=== PATIENT | female | born 1980 | race American Indian/Alaskan Native ===

== ENCOUNTER 2021-04-26 09:26 | Emergency (ER) | payer SELFPAY ==
--- NOTE | 2021-04-26 09:43 | Emergency Department Report ---
ED Altered Mental Status HPI - General Stated Complaint: HYPOGLYCEMIA Time Seen by Provider: 04/26/21 09:35 Source: patient, EMS Mode of arrival: Stretcher Limitations: No Limitations - History of Present Illness Initial Comments: 40-year-old female with a past medical history of kidney transplant, hypertension, GERD and gastroparesis presents to the hospital with EMS for alter ation in mental status secondary to hypoglycemia. Glucose 23 at the scene. Patient has a insulin pump which was discontinued by EMS upon their arrival. Patient was lethargic and barely able to answer question but was able to take p.o. intake at the scene. Patient ingested approximately 70 g of glucose prior to arrival. They were unable to establish IV access. Repeat glucose 49 prior to arrival. Patient denies nausea, vomiting, fever, cough, loss of sense of taste and smell, and has not received her Covid vaccine. She is eating appropriately but states she likely slept in and did not have breakfast. No recent changes in her insulin therapy. Patient does not have any local physicians is in the process of moving here from [facility]. Patient is currently more alert and able to answer questions appropriately. - Related Data Allergies Allergy/AdvReac Type Severity Reaction Status Date / Time No Known Allergies Allergy Unverified 04/26/21 10:26 ED Review of Systems ROS: Stated complaint: HYPOGLYCEMIA Other details as noted in HPI Comment: All other systems reviewed and negative ED Physical Exam - Other Other exam information: General: No acute distress Head: Atraumatic Eyes: normal appearance ENT: Moist mucous membranes Neck: Normal appearance, no midline tenderness Chest: Clear to auscultation bilaterally CV: Regular rate and rhythm Abdomen: Soft, normal bowel sounds, nontender, nondistended, no rebound or guarding Back: Normal inspection Extremity: Normal inspection, full range of motion Neuro: Alert O x 3, no facial asymmetry, speech clear, no gross motor sensory deficit Psych: Appropriate behavior Skin: No rash ED Course Vital Signs 04/26/21 10:27 Pulse Rate 88 Respiratory 16 Rate Blood Pressure 162/88 [Right] O2 Sat by Pulse 98 Oximetry - Lab Data Lab Results 04/26/21 Range/Units 09:31 POC Glucose 132 H (70-105) mg/dL - Medical Decision Making 40-year-old diabetic presents to the hospital with hypoglycemia secondary to insulin pump and sleeping in and not eating breakfast. CPAP was discontinued by EMS. Initial glucose in the 20s. Improvement of status upon ED arrival with glucose of 132. Patient provided breakfast to eat while waiting completion of triage. After eating glucose in the 300s. Labs ordered and patient transported to the waiting room. As informed by nurse at 10:53 AM patient wanted left AGAINST MEDICAL ADVICE. She was alert and complained of just feeling tired and had someone to come pick her up. I suspect that patient's hypoglycemia secondary to insulin pump and lack of breakfast. Patient does not endorse infectious symptoms. Patient was hyperglycemic at time of signing out but does have an insulin pump to reinitiate treatment. Labs not obtained prior to AMA. Critical Care Time: No Critical care attestation.: If time is entered above; I have spent that time in minutes in the direct care of this critically ill patient, excluding procedure time. ED Disposition Clinical Impression: Diabetic hypoglycemia Disposition: 07 LEFT AGAINST MEDICAL ADVICE Is pt being admited?: No Condition: Stable Instructions: Diabetes Mellitus Type 2 in Adults (ED) Time of Disposition: 10:55
[2021-04-26 10:28] VITALS: BP 162/88
== END 2021-04-26 10:50 | disposition left against medical advice (07) ==
LOC: ED 09:26
DX: E11.649 Type 2 diabetes mellitus with hypoglycemia without coma (principal); I10 Essential (primary) hypertension; K21.9 Gastro-esophageal reflux disease without esophagitis
CPT/HCPCS: 82962

== ENCOUNTER 2021-05-02 10:05 | Emergency (ER) | payer SELFPAY ==
[2021-05-02 11:51] VITALS: BP 149/86
--- NOTE | 2021-05-02 12:05 | Emergency Department Report ---
ED General Adult HPI - General Chief complaint: Hypoglycemia Stated complaint: LOW BLOOD SUGAR PUI?: Yes Time Seen by Provider: 05/02/21 12:01 Source: patient, EMS Mode of arrival: Wheelchair Limitations: No Limitations - History of Present Illness Initial comments: 40-year-old female with a past medical history of right renal transplant secondary to history of kidney disease, gastroparesis, anemia, hypertension, hyperlipidemia, and type 1 diabetes currently on insulin pump was brought to the ER today by EMS for having a hypoglycemic episode. Patient states that she is not exactly sure what happened, but she states that she remembers waking up around 630 this morning then going back to sleep and then the next thing she k new she was waking up in the EMS truck. According to triage nurse, EMS reported that patient had a fingerstick blood sugar on scene of 20. Patient was given D50, and she also had a food tray while waiting to be seen. Her fingerstick now is 248. She denies any recent illness, fever, chills, chest pain, shortness of breath, abdominal pain or any symptoms at this time. Patient states that she ate dinner around 5:00 last night, and then had a snack before going to bed around 1030 pm last night. Patient states that she last had a insulin pump adjusted and her dosage decreased by her primary care doctor but that around April 15. Patient was actually seen here on 04/26 for similar symptoms of a hypoglycemic episode. Complaint: Hypoglycemic episode -: Sudden, This morning - Related Data Allergies Allergy/AdvReac Type Severity Reaction Status Date / Time No Known Allergies Allergy Unverified 04/26/21 10:26 ED Review of Systems ROS: Stated complaint: LOW BLOOD SUGAR Other details as noted in HPI Comment: All other systems reviewed and negative Constitutional: denies: chills, fever Eyes: denies: eye pain, eye discharge, vision change ENT: denies: ear pain, throat pain, dental pain, hearing loss, epistaxis, congestion Respiratory: denies: cough, shortness of breath, SOB with exertion, SOB at rest, wheezing Cardiovascular: denies: chest pain, palpitations, dyspnea on exertion, edema, syncope, paroxysmal nocturnal dyspnea Endocrine: no symptoms reported Gastrointestinal: denies: abdominal pain, nausea, vomiting, diarrhea, constipation, hematemesis, hematochezia Genitourinary: denies: urgency, dysuria, frequency, hematuria, discharge, abnormal menses, dyspareunia Musculoskeletal: denies: back pain, joint swelling, arthralgia Skin: denies: rash, lesions Neurological: other (+AMS episode). denies: headache, weakness, numbness, paresthesias, confusion Psychiatric: denies: anxiety, depression, auditory hallucinations, visual hallucinations, homicidal thoughts, suicidal thoughts Hematological/Lymphatic: denies: easy bleeding, easy bruising, swollen glands ED Past Medical Hx - Past Medical History Previous Medical History?: Yes Hx Diabetes: Yes Additional medical history: Insulin pump - Surgical History Past Surgical History?: Yes - Social History Smoking Status: Never Smoker Substance Use Type: None ED Physical Exam - General Limitations: No Limitations General appearance: alert, in no apparent distress - Head Head exam: Present: atraumatic, normocephalic, normal inspection - Eye Eye exam: Present: normal appearance, PERRL, EOMI Pupils: Present: normal accommodation - ENT ENT exam: Present: normal exam, mucous membranes moist, TM's normal bilaterally - Neck Neck exam: Present: normal inspection, full ROM. Absent: tenderness - Respiratory Respiratory exam: Present: normal lung sounds bilaterally. Absent: respiratory distress, wheezes, rales, rhonchi - Cardiovascular Cardiovascular Exam: Present: regular rate, normal rhythm, normal heart sounds - GI/Abdominal GI/Abdominal exam: Present: soft. Absent: distended, tenderness, guarding, rebound - Neurological Exam Neurological exam: Present: alert, oriented X3, CN II-XII intact, normal gait - Psychiatric Psychiatric exam: Present: normal affect, normal mood ED Course Vital Signs 05/02/21 11:49 Temperature 97.7 F Pulse Rate 97 H Respiratory 18 Rate Blood Pressure 149/86 O2 Sat by Pulse 99 Oximetry ED Medical Decision Making - Medical Decision Making Patient fingerstick blood sugar now is 248 after she received D50 and was given a meal in the ER. Patient denied any symptoms before, and currently denies any symptoms now. She states that she feels better and is ready to go home. Her vital signs are stable. She is not toxic or ill-appearing and does not appear significantly dehydrated. She is currently awake alert and oriented x3, she is neurologically intact with a normal gait. Discussed case with Dr Francis, -- no indication at this time for any lab work and patient can be discharged. Informed patient that she may need to eat more frequently throughout the day, check her blood sugar regularly, and follow-up closely with her primary care doctor on Tuesday to see if she may need to have her insulin again adjusted. Patient expressed understanding of all instructions and agree with plan. Patient stable at time of discharge. Critical care attestation.: If time is entered above; I have spent that time in minutes in the direct care of this critically ill patient, excluding procedure time. ED Disposition Clinical Impression: Hypoglycemic episode in patient with diabetes mellitus Disposition: HOME / SELF CARE / HOMELESS Is pt being admited?: No Does the pt Need Aspirin: No Condition: Stable Instructions: Preventing Hypoglycemia, Blood Glucose Monitoring, Adult, Hypoglycemia, [id number], Diabetes Mellitus Type 2 in Adults (ED) Additional Instructions: I recommend that you check your blood sugar routinely. I recommend that you eat more frequent meals throughout the day recommend close follow-up with your primary care doctor either Tuesday or Tuesday to have your insulin adjusted again. Return to the ER if your symptoms changes or worsens in any way. Referrals: PRIMARY CAREMD [Primary Care Provider] - 3-5 Days Time of Disposition: 12:15
== END 2021-05-02 12:44 | disposition home or self-care (01) ==
LOC: ED 10:05
DX: E10.649 Type 1 diabetes mellitus with hypoglycemia without coma (principal); I10 Essential (primary) hypertension; Z79.899 Other long term (current) drug therapy; Z79.4 Long term (current) use of insulin
CPT/HCPCS: 82962; 99284

== ENCOUNTER 2021-05-04 19:33 | Emergency (ER) | payer SELFPAY ==
[2021-05-04] MEDS ORDERED: DEXTROSE 50% IN WATER (25GM) 50 ML SYRINGE IV PRN (19:54)
--- NOTE | 2021-05-04 19:55 | Emergency Department Report ---
ED General Adult HPI - General Chief complaint: Medical Clearance Stated complaint: HYPOGLYCEMIA PUI?: No Time Seen by Provider: 05/04/21 19:44 Source: patient, EMS (Verbal report received from emergency medical services. EMS documentation not available at time of chart dictation ), RN notes reviewed, old records reviewed Mode of arrival: Stretcher Limitations: No Limitations - History of Present Illness Initial comments: The patient was evaluated in the emergency department for symptoms described in the history of present illness. He/she was evaluated in the context of the global COVID-19 pandemic, which necessitated consideration that the patient might be at risk for infection with the virus that causes COVID-19. Ins titutional protocols and algorithms that pertain to the evaluation of patients at risk for COVID-19 are in a state of rapid change based on information released by regulatory bodies including the CDC and federal and state organizations. These policies and algorithms were followed during the patient's care in the emergency department. Please note that these policies, procedures and recommendations changed on a rapid basis. This patient is a 40-year-old female. She is not known to myself previously. She reports a history of type 1 diabetes, with an insulin pump, GERD, gastroparesis, and also reports a history of cadaveric renal transplant, done at [facility] in [place], and is currently maintained on chronic steroids, tacrolimus, and mycophenolate. She reports that she is currently attempting to relocate from [place]. She therefore has no established medical care here in the [facility]. This is her third visit to this hospital with a complaint of hypoglycemia. EMS reports the patient was in a car, which was not damaged and was altered. She was found to be hypoglycemic in the field. She was given dextrose in the field. Here in the emergency room, the patient complains of generalized body aches. She denies headache, neck pain, chest pain, abdominal pain, shortness of breath, loss of taste and smell. She reports that her insulin pump typically administers insulin doses, according to what she eats and carbohydrates. The patient denies recreational drug use. The patient denies that she is . Patient given D50. I also fed this patient a meal tray. In addition, her insulin pump was disconnected in the emergency room. -: Sudden Consistency: intermittent Improves with: eating Worsens with: none - Related Data Previous Rx's Medication Instructions Recorded Last Taken Type Diabetic Supplies,Miscell [Cequr 1 each MC DAILY #1 miscell 05/05/21 Unknown Rx Simplicity Layboy Tender] Insulin Regular, Human [Novolin R See Protocol SUB-Q ACHS 30 Days #1 05/05/21 Unknown Rx Flexpen] insuln.pen Allergies Allergy/AdvReac Type Severity Reaction Status Date / Time No Known Allergies Allergy Unverified 04/26/21 10:26 ED Review of Systems ROS: Stated complaint: HYPOGLYCEMIA Other details as noted in HPI Constitutional: malaise, weakness. denies: fever Eyes: denies: eye discharge ENT: denies: epistaxis Respiratory: denies: cough Cardiovascular: denies: chest pain Gastrointestinal: denies: abdominal pain Genitourinary: denies: dysuria Musculoskeletal: myalgia Neurological: weakness ED Past Medical Hx - Past Medical History Hx Diabetes: Yes Additional medical history: Insulin pump - Social History Smoking Status: Never Smoker Substance Use Type: None - Medications Home Medications: Home Medications Medication Instructions Recorded Confirmed Last Taken Type Diabetic Supplies,Miscell [Cequr 1 each MC DAILY #1 miscell 05/05/21 Unknown Rx Simplicity Layboy Tender] Insulin Regular, Human [Novolin R See Protocol SUB-Q ACHS 30 Days #1 05/05/21 Unknown Rx Flexpen] insuln.pen ED Physical Exam - General Limitations: No Limitations General appearance: alert, anxious - Head Head exam: Present: atraumatic, normocephalic - Eye Eye exam: Present: normal appearance, EOMI. Absent: nystagmus - ENT ENT exam: Present: normal exam, normal orophraynx, mucous membranes moist, normal external ear exam - Neck Neck exam: Present: normal inspection, full ROM. Absent: tenderness, meningismus - Respiratory Respiratory exam: Present: normal lung sounds bilaterally. Absent: respiratory distress, wheezes, rales, rhonchi, stridor, decreased breath sounds - Cardiovascular Cardiovascular Exam: Present: regular rate, normal rhythm, normal heart sounds. Absent: bradycardia, tachycardia, irregular rhythm, systolic murmur, diastolic murmur, rubs, gallop - GI/Abdominal GI/Abdominal exam: Present: soft. Absent: distended, tenderness, guarding, rigid, pulsatile mass - Extremities Exam Extremities exam: Present: normal inspection, full ROM, other (2+ pulses noted in the bilateral upper and lower extremities. There is no palpable cord. negative Homans sign. Muscular compartments are soft. The pelvis is stable.). Absent: pedal edema, calf tenderness - Back Exam Back exam: Present: normal inspection. Absent: tenderness, CVA tenderness (R), CVA tenderness (L), paraspinal tenderness, vertebral tenderness - Neurological Exam Neurological exam: Present: alert, oriented X3, other (No facial droop. Tongue midline. Extraocular movements intact bilaterally. Facial sensation intact to light touch in V1, V2, V3 distribution bilaterally. 5 and a 5 strength in 4 extremities. Sensation intact to light touch in 4 extremities.). Absent: motor sensory deficit - Psychiatric Psychiatric exam: Present: anxious - Skin Skin exam: Present: warm, dry, intact, normal color. Absent: rash ED Course Vital Signs 05/05/21 05/05/21 00:21 00:26 Temperature 98.9 F Respiratory 12 18 Rate Blood Pressure 132/69 O2 Sat by Pulse 100 Oximetry - Reevaluation(s) Reevaluation #1: 05/04/21 20:30 Differential diagnosis, including not limited to: Hypoglycemia, thyroid derangement, renal derangement, liver derangement, medication side effect, pneumonia, urinary tract infection, excessive insulin administration from pump, recreational drug use. Assessment and plan: 40-year-old female, who is currently clinically sober with a GCS of 15, with her third visit for hypoglycemia. Patient has a very complex past medical history, and is on a number of complex and high alert medications. She is currently being fed, she is not clinically encephalopathic at this time. We have requested basic laboratory studies, urinalysis, and x-ray the chest. Accu-Cheks every 1 hour, as needed dextrose. I requested that nursing team obtain full set of vital signs. Patient will also need to head to toe skin examination to evaluate for cellulitis, and cutaneous infection pathology. Reassess after this evaluation has been completed. Her insulin pump was discontinued. 05/04/21 23:49 Patient has been observed here for hours. Performed head to toe skin examination while nurse Jean Marie Bethea is present as a producer director. Her physical examination is unremarkable. Her laboratory studies are essentially unremarkable. She has very mild renal insufficiency. However, urinalysis unremarkable and chest x-ray unremarkable for acute infectious pathology. The patient's insulin pump has been discontinued. I have strongly advised patient to keep her insulin pump discontinued, we will discharge her with insulin prescriptions to go, and have also strongly encouraged the patient to very closely follow-up with an outpatient primary care, waste recycler, and ideally a transplant waste recycler. At this point time, she does not require transfer to a transplant center. She will be given an affordable prescription card. She has articulated understanding. Repeat Accu-Chek and repeat vital signs are pending, and if unremarkable, and within normal limits, we anticipate discharge. ED Medical Decision Making - Lab Data Result diagrams: 05/04/21 20:19 05/04/21 20:19 Lab Results 05/04/21 05/04/21 05/04/21 Range/Units 20:19 20:19 20:19 WBC 9.6 (4.5-11.0) K/mm3 RBC 3.87 (3.65-5.03) M/mm3 Hgb 10.7 (10.1-14.3) gm/dl Hct 34.4 (30.3-42.9) % MCV 89 (79-97) fl MCH 28 (28-32) pg MCHC 31 (30-34) % RDW 20.7 H (13.2-15.2) % Plt Count 396 (140-440) K/mm3 Sodium 138 (137-145) mmol/L Potassium 4.1 (3.6-5.0) mmol/L Chloride 104.4 (98-107) mmol/L Carbon Dioxide 23 (22-30) mmol/L Anion Gap 15 mmol/L BUN 21 H (7-17) mg/dL Creatinine 1.5 H (0.6-1.2) mg/dL Estimated GFR 47 ml/min BUN/Creatinine Ratio 14 % Glucose 101 H (65-100) mg/dL POC Glucose (70-105) mg/dL Calcium 10.3 H (8.4-10.2) mg/dL Total Bilirubin 0.20 (0.1-1.2) mg/dL AST 17 (5-40) units/L ALT 11 (7-56) units/L Alkaline Phosphatase 104 (35-129) units/L Total Protein 8.3 H (6.3-8.2) g/dL Albumin 4.3 (3.9-5) g/dL Albumin/Globulin Ratio 1.1 % TSH 0.710 (0.270-4.200) mlU/mL Urine Color (Yellow) Urine Turbidity (Clear) Urine pH (5.0-7.0) Ur Specific [place] (1.003-1.030) Urine Protein (Negative) mg/dL Urine Glucose (UA) (Negative) mg/dL Urine Ketones (Negative) mg/dL Urine Blood (Negative) Urine Nitrite (Negative) Urine Bilirubin (Negative) Urine Urobilinogen (<2.0) mg/dL Ur Leukocyte Esterase (Negative) Urine WBC (Auto) (0.0-6.0) /HPF Urine RBC (Auto) (0.0-6.0) /HPF U Epithel Cells (Auto) (0-13.0) /HPF Urine Mucus /HPF Urine Yeast (Budding) /HPF Urine HCG, Qual (Negative) Salicylates (2.8-20.0) mg/dL Urine Opiates Screen Urine Methadone Screen Acetaminophen (10.0-30.0) ug/mL Ur Barbiturates Screen Ur Phencyclidine Scrn Ur Amphetamines Screen U Benzodiazepines Scrn Urine Cocaine Screen U Marijuana (THC) Screen Drugs of Abuse Note Plasma/Serum Alcohol (0-0.07) % 05/04/21 05/04/21 05/04/21 Range/Units 20:19 20:19 20:19 WBC (4.5-11.0) K/mm3 RBC (3.65-5.03) M/mm3 Hgb (10.1-14.3) gm/dl Hct (30.3-42.9) % MCV (79-97) fl MCH (28-32) pg MCHC (30-34) % RDW (13.2-15.2) % Plt Count (140-440) K/mm3 Sodium (137-145) mmol/L Potassium (3.6-5.0) mmol/L Chloride (98-107) mmol/L Carbon Dioxide (22-30) mmol/L Anion Gap mmol/L BUN (7-17) mg/dL Creatinine (0.6-1.2) mg/dL Estimated GFR ml/min BUN/Creatinine Ratio % Glucose (65-100) mg/dL POC Glucose (70-105) mg/dL Calcium (8.4-10.2) mg/dL Total Bilirubin (0.1-1.2) mg/dL AST (5-40) units/L ALT (7-56) units/L Alkaline Phosphatase (35-129) units/L Total Protein (6.3-8.2) g/dL Albumin (3.9-5) g/dL Albumin/Globulin Ratio % TSH (0.270-4.200) mlU/mL Urine Color (Yellow) Urine Turbidity (Clear) Urine pH (5.0-7.0) Ur Specific [place] (1.003-1.030) Urine Protein (Negative) mg/dL Urine Glucose (UA) (Negative) mg/dL Urine Ketones (Negative) mg/dL Urine Blood (Negative) Urine Nitrite (Negative) Urine Bilirubin (Negative) Urine Urobilinogen (<2.0) mg/dL Ur Leukocyte Esterase (Negative) Urine WBC (Auto) (0.0-6.0) /HPF Urine RBC (Auto) (0.0-6.0) /HPF U Epithel Cells (Auto) (0-13.0) /HPF Urine Mucus /HPF Urine Yeast (Budding) /HPF Urine HCG, Qual (Negative) Salicylates < 0.3 L (2.8-20.0) mg/dL Urine Opiates Screen Urine Methadone Screen Acetaminophen 5.0 L (10.0-30.0) ug/mL Ur Barbiturates Screen Ur Phencyclidine Scrn Ur Amphetamines Screen U Benzodiazepines Scrn Urine Cocaine Screen U Marijuana (THC) Screen Drugs of Abuse Note Plasma/Serum Alcohol < 0.01 (0-0.07) % 05/04/21 05/04/21 05/04/21 Range/Units 23:47 Unknown Unknown WBC (4.5-11.0) K/mm3 RBC (3.65-5.03) M/mm3 Hgb (10.1-14.3) gm/dl Hct (30.3-42.9) % MCV (79-97) fl MCH (28-32) pg MCHC (30-34) % RDW (13.2-15.2) % Plt Count (140-440) K/mm3 Sodium (137-145) mmol/L Potassium (3.6-5.0) mmol/L Chloride (98-107) mmol/L Carbon Dioxide (22-30) mmol/L Anion Gap mmol/L BUN (7-17) mg/dL Creatinine (0.6-1.2) mg/dL Estimated GFR ml/min BUN/Creatinine Ratio % Glucose (65-100) mg/dL POC Glucose 296 H (70-105) mg/dL Calcium (8.4-10.2) mg/dL Total Bilirubin (0.1-1.2) mg/dL AST (5-40) units/L ALT (7-56) units/L Alkaline Phosphatase (35-129) units/L Total Protein (6.3-8.2) g/dL Albumin (3.9-5) g/dL Albumin/Globulin Ratio % TSH (0.270-4.200) mlU/mL Urine Color Yellow (Yellow) Urine Turbidity Slightly-cloudy (Clear) Urine pH 6.0 (5.0-7.0) Ur Specific [place] 1.014 (1.003-1.030) Urine Protein >500 (Negative) mg/dL Urine Glucose (UA) 50 (Negative) mg/dL Urine Ketones Neg (Negative) mg/dL Urine Blood Sm (Negative) Urine Nitrite Neg (Negative) Urine Bilirubin Neg (Negative) Urine Urobilinogen < 2.0 (<2.0) mg/dL Ur Leukocyte Esterase Neg (Negative) Urine WBC (Auto) 4.0 (0.0-6.0) /HPF Urine RBC (Auto) 6.0 (0.0-6.0) /HPF U Epithel Cells (Auto) 5.0 (0-13.0) /HPF Urine Mucus Few /HPF Urine Yeast (Budding) Few /HPF Urine HCG, Qual Negative (Negative) Salicylates (2.8-20.0) mg/dL Urine Opiates Screen Negative Urine Methadone Screen Negative Acetaminophen (10.0-30.0) ug/mL Ur Barbiturates Screen Negative Ur Phencyclidine Scrn Negative Ur Amphetamines Screen Negative U Benzodiazepines Scrn Negative Urine Cocaine Screen Negative U Marijuana (THC) Screen Negative Drugs of Abuse Note Disclamer Plasma/Serum Alcohol (0-0.07) % Vital Signs 05/05/21 05/05/21 00:21 00:26 Temperature 98.9 F Respiratory 12 18 Rate Blood Pressure 132/69 O2 Sat by Pulse 100 Oximetry Heart rate is 96 bpm. Vital Signs 05/05/21 05/05/21 00:21 00:26 Temperature 98.9 F Respiratory 12 18 Rate Blood Pressure 132/69 O2 Sat by Pulse 100 Oximetry Critical care attestation.: If time is entered above; I have spent that time in minutes in the direct care of this critically ill patient, excluding procedure time. ED Disposition Clinical Impression: History of renal transplant, Diabetic hypoglycemia Disposition: HOME / SELF CARE / HOMELESS Is pt being admited?: No Does the pt Need Aspirin: No Condition: Stable Instructions: Diabetes Mellitus Type 2 in Adults (ED), Hypoglycemia, [id number] Additional Instructions: I recommend that the patient keep her diabetic pump discontinued for the time being. Please take the prescribed insulin as directed. Please make certain to remain compliant with a diabetic appropriate diet. I strongly recommend that the patient follow-up as soon as possible with an outpatient primary care doctor or register of wills to establish care here in [place]. We also recommended the patient follow-up as soon as possible with an outpatient waste recycler and/or transplant waste recycler, to establish care here in [place]. The patient may continue her current outpatient medications, except for her insulin therapy via pump, but close follow-up is necessary to ensure that patient's medications are working appropriately Take the prescribed insulin as directed. Dr. Tom Is a local primary care doctor. Dr. Rc Sherwood Is a local waste recycler. The patient will need to contact her insurance company and find out what endocrinologists are local, and her current insurance network. Local transplant facilities include [facility]. The patient should research local transplant waste recycler at these facilities, or primary care doctor or waste recycler may refer her to a local facility. It is very important to keep your diabetic insulin pump disconnected for the time being, as the patient had her third visit for low blood sugar today. Co mplications of persistently low blood sugar include , disability, paralysis, loss of quality of life, traumatic injury. Therefore, please take the prescribed insulin as directed. Please return to the emergency room right away with new pain, worsened pain, migration of pain, projectile vomiting, change in mental status, confusion, inability tolerate liquid feeds, new, worsened or different symptoms not present on the initial emergency room evaluation. Prescriptions: Diabetic Supplies,Miscell [Cequr Simplicity Layboy Tender] 1 each MC DAILY #1 miscell Insulin Regular, Human [Novolin R Flexpen] See Protocol SUB-Q ACHS 30 Days #1 [email or web address] Referrals: PRIMARY CAREMD [Primary Care Provider] - 3-5 Days CIERRA TOM MD [Staff Physician] - 3-5 Days MARKOS SHERWOOD MD [Staff Physician] - 3-5 Days
[2021-05-04 20:50] LABS: Albumin 4.3 g/dL (3.9-5); Calcium 10.3 mg/dL (8.4-10.2)
[2021-05-04 20:51] LABS: Hematocrit 34.4 % (30.3-42.9); Hemoglobin 10.7 gm/dl (10.1-14.3); Mean Corpuscular HGB Conc 31 % (30-34); Mean Corpuscular Volume 89 fl (79-97); Platelet Count 396 K/mm3 (140-440); Red Blood Count 3.87 M/mm3 (3.65-5.03)
[2021-05-04 20:53] LABS: Red Cell Distribution Width 20.7 % (13.2-15.2)
[2021-05-04 21:12] LABS: Amphetamine Screen,Urine Negative; Benzodiazepines Screen,Urine Negative; Cannabinoid Screen,Urine Negative; Cocaine Screen,Urine Negative; Methadone Screen,Urine Negative; Opiate Screen,Urine Negative
[2021-05-04 21:14] LABS: Bilirubin,Urine NEG (Negative); Blood,Urine SM (Negative); Color,Urine Yellow (Yellow); Mucus,Urine FEW /HPF; Urobilinogen,Urine < 2.0 mg/dL (<2.0)
[2021-05-04 21:29] LABS: HCG Qualitative,Urine Negative (Negative)
[2021-05-04 21:53] LABS: Protein,Urine >500 mg/dL (Negative)
--- NOTE | 2021-05-04 22:36 | XRay Report ---
CHEST 1 VIEW 05/04/2021 10:29 PM INDICATION / CLINICAL INFORMATION: hypoglycemia, r out pna. COMPARISON: None available. FINDINGS: SUPPORT DEVICES: None. HEART / MEDIASTINUM: No significant abnormality. LUNGS / PLEURA: No significant pulmonary or pleural abnormality. No pneumothorax. ADDITIONAL FINDINGS: No significant additional findings. IMPRESSION: No acute abnormality. Signer Name: Saede Buenrostro MD Signed: 05/04/2021 10:31 PM Workstation Name: [id number]
[2021-05-05 00:25] VITALS: BP 132/69
[2021-05-05] MEDS: DEXTROSE 50% IN WATER (25GM) 50 ML SYRINGE IV ONE (01:16)
[2021-05-05] MEDS: ACETAMINOPHEN 325 MG TAB PO ONE (01:45)
== END 2021-05-05 01:50 | disposition home or self-care (01) ==
LOC: ED 19:33
DX: E11.649 Type 2 diabetes mellitus with hypoglycemia without coma (principal); Z94.0 Kidney transplant status; Z79.899 Other long term (current) drug therapy
CPT/HCPCS: 36415; 71045; 80053; 80307; 80320; 81001; 81025; 82962; 84443; 85027; G0480